=== PATIENT | female | born 1935 | race Caucasian/White ===

== ENCOUNTER 2017-01-11 22:03 | Inpatient (IN) | payer MEDICARE ==
[~2017-01-11] VITALS: Ht 161.8 cm; Wt 52.9 kg
[2017-01-11 23:04] VITALS: BP 137/82
[2017-01-12] MEDS ORDERED: DOCUSATE 100 MG CAPSULE PO PRN (01:00)
[2017-01-12] MEDS ORDERED: BISACODYL 10 MG SUPP PR PRN (01:00)
[2017-01-12] MEDS ORDERED: POLYETHYLENE GLYCOL 17 GM PACKET PO PRN (01:00)
[2017-01-12] MEDS: PLEASE ENTER ALLERGIES MC SCH ×4 (01:26→08:31)
[2017-01-12 01:37] VITALS: BP 154/84
[2017-01-12 06:29] VITALS: BP 160/72
[2017-01-12 08:23] LABS: HEMOGLOBIN 13.5 g/dL (11.7-16.4)
[2017-01-12] MEDS: ENOXAPARIN 40 MG/0.4 ML SQ SCH (08:26)
[2017-01-12] MEDS: CEFTRIAXONE PMX 1GM/50ML 50 ML IV SCH (08:26)
[2017-01-12] MEDS: LEVOTHYROXINE 25 MCG TABLET PO SCH (08:29)
[2017-01-12 09:03] LABS: BLOOD UREA NITROGEN 20 mg/dL (7-18)
[2017-01-12 09:30] LABS: ASPARTATE AMINO TRANSFERASE 17 U/L (15-37)
[2017-01-12 12:15] VITALS: BP 159/89
[2017-01-12] MEDS: SODIUM CHLORIDE 0.9% 1,000 ML IV SCH (12:55)
[2017-01-12 13:30] LABS: PATH.CAST-FLAG NOT PRESENT; SPERM-FLAG NOT PRESENT; SRC-FLAG NOT PRESENT; XTAL-FLAG NOT PRESENT; YLC-FLAG NOT PRESENT
[2017-01-12 19:03] VITALS: BP_SYST 166; BP_SYST 170; BP_DIAS 93; BP_DIAS 94
[2017-01-12] MEDS ORDERED: LABETALOL 5MG/ML, 20ML IVPush ONE (20:00)
[2017-01-12] MEDS ORDERED: LABETALOL 20 MG/4 ML IVPush ONE (20:30)
[2017-01-13 01:10] VITALS: BP 133/73
[2017-01-13] MEDS: SODIUM CHLORIDE 0.9% 1,000 ML IV SCH ×2 (01:37→14:41)
[2017-01-13 05:25] LABS: HEMOGLOBIN 13.9 g/dL (11.7-16.4)
[2017-01-13 05:37] LABS: BLOOD UREA NITROGEN 15 mg/dL (7-18)
[2017-01-13 05:41] LABS: ASPARTATE AMINO TRANSFERASE 15 U/L (15-37)
[2017-01-13 07:31] VITALS: BP 147/88
[2017-01-13] MEDS ORDERED: POTASSIUM CHLORIDE 20 MEQ TAB.ER.PRT PO ONE (08:30)
[2017-01-13] MEDS: ENOXAPARIN 40 MG/0.4 ML SQ SCH (09:14)
[2017-01-13] MEDS: LEVOTHYROXINE 25 MCG TABLET PO SCH (09:14)
[2017-01-13] MEDS: CEFTRIAXONE PMX 1GM/50ML 50 ML IV SCH (09:14)
[2017-01-13 13:58] VITALS: BP 155/91
[2017-01-13 21:54] VITALS: BP 154/99
[2017-01-14 03:24] VITALS: BP 128/76
[2017-01-14] MEDS: SODIUM CHLORIDE 0.9% 1,000 ML IV SCH ×2 (03:39→17:51)
[2017-01-14 05:23] LABS: HEMOGLOBIN 14.8 g/dL (11.7-16.4)
[2017-01-14 05:39] LABS: BLOOD UREA NITROGEN 17 mg/dL (7-18)
[2017-01-14] MEDS: LEVOTHYROXINE 25 MCG TABLET PO SCH (05:43)
[2017-01-14] MEDS: ENOXAPARIN 40 MG/0.4 ML SQ SCH (05:43)
[2017-01-14] MEDS: CEFTRIAXONE PMX 1GM/50ML 50 ML IV SCH (06:29)
[2017-01-14 06:55] VITALS: BP 136/78
[2017-01-14 14:21] VITALS: BP 134/80
[2017-01-14 20:03] VITALS: BP 116/75
[2017-01-15 02:21] VITALS: BP 132/76
[2017-01-15] MEDS: SODIUM CHLORIDE 0.9% 1,000 ML IV SCH ×2 (06:07→19:40)
[2017-01-15] MEDS: ENOXAPARIN 40 MG/0.4 ML SQ SCH (06:07)
[2017-01-15] MEDS: LEVOTHYROXINE 25 MCG TABLET PO SCH (06:07)
[2017-01-15] MEDS: CEFTRIAXONE PMX 1GM/50ML 50 ML IV SCH (06:40)
[2017-01-15 07:45] VITALS: BP 113/66
[2017-01-15] MEDS: CYANOCOBALAMIN 1,000 MCG TABLET PO SCH (09:00)
[2017-01-15 12:43] VITALS: BP 139/80
[2017-01-15 19:45] VITALS: BP 134/81
[2017-01-15] MEDS: ACETAMINOPHEN 325 MG TABLET PO PRN (19:53)
[2017-01-16 02:19] VITALS: BP 153/82
[2017-01-16] MEDS: LEVOTHYROXINE 25 MCG TABLET PO SCH (06:00)
[2017-01-16] MEDS: ENOXAPARIN 40 MG/0.4 ML SQ SCH (06:37)
[2017-01-16] MEDS: CEFTRIAXONE PMX 1GM/50ML 50 ML IV SCH (06:37)
[2017-01-16 07:44] VITALS: BP 147/76
[2017-01-16] MEDS: CYANOCOBALAMIN 1,000 MCG TABLET PO SCH (08:24)
[2017-01-16] MEDS: SODIUM CHLORIDE 0.9% 1,000 ML IV SCH ×2 (08:24→20:43)
[2017-01-16 13:04] VITALS: BP 159/91
[2017-01-16 19:00] VITALS: BP 133/76
[2017-01-16 20:40] VITALS: BP 142/82
[2017-01-17 01:45] VITALS: BP 133/76
[2017-01-17] MEDS: LEVOTHYROXINE 25 MCG TABLET PO SCH (06:06)
[2017-01-17 07:23] VITALS: BP 133/85
[2017-01-17] MEDS: ENOXAPARIN 40 MG/0.4 ML SQ SCH (07:29)
[2017-01-17] MEDS: CEFTRIAXONE PMX 1GM/50ML 50 ML IV SCH (07:29)
[2017-01-17] MEDS: CYANOCOBALAMIN 1,000 MCG TABLET PO SCH (09:16)
[2017-01-17] MEDS: SODIUM CHLORIDE 0.9% 1,000 ML IV SCH (11:14)
[2017-01-17 13:59] VITALS: BP 122/74
[2017-01-17 19:49] VITALS: BP 153/81
[2017-01-18 01:35] VITALS: BP 144/76
[2017-01-18 05:31] LABS: BLOOD UREA NITROGEN 18 mg/dL (7-18)
[2017-01-18] MEDS: LEVOTHYROXINE 25 MCG TABLET PO SCH (05:33)
[2017-01-18 05:38] LABS: HEMOGLOBIN 12.7 g/dL (11.7-16.4)
[2017-01-18 07:00] VITALS: BP 137/75
[2017-01-18] MEDS: ACETAMINOPHEN 325 MG TABLET PO PRN ×2 (08:00→14:39)
[2017-01-18] MEDS: ENOXAPARIN 40 MG/0.4 ML SQ SCH (08:01)
[2017-01-18] MEDS: CYANOCOBALAMIN 1,000 MCG TABLET PO SCH (08:01)
[2017-01-18] MEDS ORDERED: POTASSIUM CHLORIDE 20 MEQ TAB.ER.PRT PO ONE (12:00)
[2017-01-18 14:27] VITALS: BP 180/81
[2017-01-18 15:20] VITALS: BP 118/69
[2017-01-18] MEDS ORDERED: LABETALOL 5MG/ML, 20ML IVPush ONE (15:30)
[2017-01-18 19:24] VITALS: BP 159/91
[2017-01-19 01:00] VITALS: BP 153/68
[2017-01-19] MEDS: LEVOTHYROXINE 25 MCG TABLET PO SCH (06:04)
[2017-01-19 06:42] VITALS: BP 133/82
[2017-01-19] MEDS: CYANOCOBALAMIN 1,000 MCG TABLET PO SCH (09:01)
[2017-01-19] MEDS: ENOXAPARIN 40 MG/0.4 ML SQ SCH (09:02)
[2017-01-19] MEDS: AMLODIPINE 5 MG TABLET PO SCH (09:03)
[2017-01-19 13:23] VITALS: BP 113/70
[2017-01-19 19:59] VITALS: BP 139/81
[2017-01-20 02:46] VITALS: BP 155/62
[2017-01-20 02:58] VITALS: BP 157/72
[2017-01-20] MEDS: LEVOTHYROXINE 25 MCG TABLET PO SCH (05:09)
[2017-01-20 05:30] LABS: BLOOD UREA NITROGEN 30 mg/dL (7-18)
[2017-01-20 05:39] LABS: HEMOGLOBIN 14.1 g/dL (11.7-16.4)
[2017-01-20 07:05] VITALS: BP 129/80
[2017-01-20] MEDS: ENOXAPARIN 40 MG/0.4 ML SQ SCH (08:19)
[2017-01-20] MEDS: CYANOCOBALAMIN 1,000 MCG TABLET PO SCH (09:56)
[2017-01-20] MEDS: AMLODIPINE 5 MG TABLET PO SCH (09:57)
[2017-01-20 14:41] VITALS: BP 110/67
[2017-01-20 19:41] VITALS: BP 145/77
[2017-01-21 01:46] VITALS: BP 106/68
[2017-01-21] MEDS: LEVOTHYROXINE 25 MCG TABLET PO SCH ×2 (06:00→07:48)
[2017-01-21 07:05] VITALS: BP 111/69
[2017-01-21] MEDS: CYANOCOBALAMIN 1,000 MCG TABLET PO SCH (07:48)
[2017-01-21] MEDS: ENOXAPARIN 40 MG/0.4 ML SQ SCH (07:48)
[2017-01-21] MEDS: AMLODIPINE 5 MG TABLET PO SCH (07:48)
[2017-01-21 13:25] VITALS: BP 98/57
[2017-01-21 19:35] VITALS: BP 136/86
[2017-01-22 01:37] VITALS: BP 118/63
[2017-01-22 06:49] VITALS: BP 129/73
[2017-01-22] MEDS: CYANOCOBALAMIN 1,000 MCG TABLET PO SCH (07:17)
[2017-01-22] MEDS: AMLODIPINE 5 MG TABLET PO SCH (07:17)
[2017-01-22] MEDS: LEVOTHYROXINE 25 MCG TABLET PO SCH (07:18)
[2017-01-22] MEDS: ENOXAPARIN 40 MG/0.4 ML SQ SCH (07:18)
[2017-01-22 08:23] LABS: HEMOGLOBIN 13.6 g/dL (11.7-16.4)
[2017-01-22 08:33] LABS: ASPARTATE AMINO TRANSFERASE 22 U/L (15-37); BLOOD UREA NITROGEN 36 mg/dL (7-18)
[2017-01-22 12:40] VITALS: BP 123/59
[2017-01-22] MEDS ORDERED: CYAN10005 PO (15:35)
[2017-01-22] MEDS ORDERED: LEVO25TA2 PO (15:35)
[2017-01-22] MEDS ORDERED: AMLO5TAB2 PO (15:35)
[2017-01-22] MEDS ORDERED: DOCU-30 PO (15:35)
== END 2017-01-22 17:46 | DRG 689 ==
LOC: 3NW 22:42 → 3NE 01-13 07:08
DX: N39.0 Urinary tract infection, site not specified (principal); E43 Unspecified severe protein-calorie malnutrition; R47.01 Aphasia; J98.11 Atelectasis; F03.90 Unspecified dementia, unspecified severity, without behavioral disturbance, psychotic disturbance, mood disturbance, and anxiety; R62.7 Adult failure to thrive; E03.9 Hypothyroidism, unspecified; Z66 Do not resuscitate; E78.5 Hyperlipidemia, unspecified; Z68.21 Body mass index [BMI] 21.0-21.9, adult; K21.9 Gastro-esophageal reflux disease without esophagitis; E53.8 Deficiency of other specified B group vitamins; E87.6 Hypokalemia; G89.29 Other chronic pain; I10 Essential (primary) hypertension; M54.9 Dorsalgia, unspecified; W01.0XXA Fall on same level from slipping, tripping and stumbling without subsequent striking against object, initial encounter; R73.9 Hyperglycemia, unspecified
CPT/HCPCS: 36415; 71010; 80048; 80053; 81001; 82040; 82607; 82746; 83735; 84100; 84145; 84443; 85025; 93005; J0696; J1650; J7030